=== PATIENT | male | born 1975 | race Caucasian/White ===

== ENCOUNTER 2017-03-24 01:05 | Emergency (ER) | payer SELFPAY ==
[2017-03-24 01:09] VITALS: BP 144/90
[2017-03-24 02:23] LABS: microscopic required? NO
[2017-03-24 02:42] LABS: UA SPECIFIC GRAVITY <=1.005 (1.005-1.035); urine erythrocyte NEGATIVE (NEGATIVE)
== END 2017-03-24 03:49 | disposition home or self-care (01) ==
LOC: ED 01:05
DX: M79.1 Myalgia (principal)

== ENCOUNTER 2017-03-24 21:17 | Emergency (ER) | payer SELFPAY ==
[2017-03-24 23:15] VITALS: BP 116/71
== END 2017-03-24 23:15 | disposition home or self-care (01) ==
LOC: ED 21:17
PROC: 3E033GC Introduction of Other Therapeutic Substance into Peripheral Vein, Percutaneous Approach (ICD-10-PCS; principal; 2017-03-24)
DX: E86.0 Dehydration (principal); R06.02 Shortness of breath